=== PATIENT | female | born 1990 | race Caucasian/White ===

== ENCOUNTER 2016-08-12 23:33 | Emergency (ER) | payer MEDICAID ==
[2016-08-12 23:42] VITALS: TEMP 98.7
--- NOTE | 2016-08-13 01:38 | C.PDOC ---
History Of Present Illness 26 year old female presents to the ED with complaints of chest pain and back pain beginning just prior to arrival. Patient states she was playing with her child when they began to fall backward, causing her to strain her upper body, chest, and back preventing the child form falling. She denies any head trauma, LOC, shortness of breath, or palpitations. - HPI Time Seen by Provider: 08/12/16 23:46 Chief Complaint (Nursing): Trauma History Per: Patient History/Exam Limitations: no limitations Onset/Duration Of Symptoms: Hrs Injury Occurred (Timing): Just Before Arrival Location Of Injury: Right: Back, Left: Back, Anterior: Chest Pain Scale Rating Of: 6 Recent travel outside of the [place]: No Additional History Per: Family (significant other ) Past Medical History Reviewed: Historical Data, Nursing Documentation, Vital Signs Vital Signs: Last Vital Signs Temp 98.7 F 08/12/16 23:37 Pulse 80 08/13/16 01:44 Resp 14 08/13/16 01:44 BP 120/80 08/13/16 01:44 Pulse Ox 100 08/13/16 04:03 Family History: States: No Known Family Hx - Social History Hx Alcohol Use: Yes Hx Substance Use: No Review Of Systems Except As Marked, All Systems Reviewed And Found Negative. Constitutional: Negative for: Fever, Chills Cardiovascular: Positive for: Chest Pain. Negative for: Palpitations Respiratory: Negative for: Cough, Shortness of Breath Gastrointestinal: Negative for: Nausea, Vomiting, Abdominal Pain, Diarrhea Musculoskeletal: Positive for: Back Pain. Negative for: Arm Pain, Hand Pain, Leg Pain, Foot Pain Physical Exam - Physical Exam Appears: Non-toxic, No Acute Distress Skin: Warm, Dry, No Rash Head: Atraumatic, Normacephalic Eye(s): bilateral: Normal Inspection, PERRL, EOMI Ear(s): Bilateral: Normal Oral Mucosa: Moist Neck: Normal ROM, No Midline Cervical Tenderness, No Paracervical Tenderness, Supple Chest: Symmetrical, No Deformity, Tenderness (chest wall tenderness ), No Ecchymosis, No Subcutaneous Emphysema Cardiovascular: Rhythm Regular, No Friction Rub, No Murmur Respiratory: Normal Breath Sounds, No Rales, No Rhonchi, No Stridor, No Wheezing Gastrointestinal/Abdominal: Soft, No Tenderness, No Distention, No Guarding, No Rebound Back: No CVA Tenderness, No Vertebral Tenderness, No Paraspinal Tenderness Extremity: Normal ROM, No Tenderness, No Swelling Neurological/Psych: Oriented x3, Normal Speech, Normal Cranial Nerves, Normal Motor Gait: Steady ED Course And Treatment O2 Sat by Pulse Oximetry: 100 (room air) Pulse Ox Interpretation: Normal - Radiology CXR: Interpreted by Me, Viewed By Me CXR Interpretation: Yes: No Acute Disease. No: Infiltrates, Fracture, Pnemothorax Medical Decision Making Medical Decision Making: Patient was given Flexeril and Ibuprofen for inflammation and pain. On re-exam, the patient reports improvement of symptoms. Lungs are CTA, heart is RRR, abdomen is soft, non-tender and patient is tolerating PO well. Ambulatory in the ED with steady gait. Follow up with the medical doctor within 1-2 days. Return if worsened. Disposition - Disposition Referrals: Kam Burt MD [Staff Provider] - Disposition: HOME/ ROUTINE Disposition Time: 01:37 Condition: GOOD Additional Instructions: Follow up with the medical doctor within 1-2 days. Return if worsened Prescriptions: Cyclobenzaprine [Flexeril] 5 mg PO TID #21 tab Ibuprofen [Motrin] 600 mg PO TID #21 tab Instructions: Costochondritis (ED) - Clinical Impression Clinical Impression: Muscle strain, Costochondritis - Scribe Statement The provider has reviewed the documentation as recorded by the Scribangel Owens All medical record entries made by the Irisibangel were at my direction and personally dictated by me. I have reviewed the chart and agree that the record accurately reflects my personal performance of the history, physical exam, medical decision making, and the department course for this patient. I have also personally directed, reviewed, and agree with the discharge instructions and disposition.
[2016-08-13 01:45] VITALS: BP 120/80; PULSE 80; RESP 14
[2016-08-13 03:59] VITALS: O2SAT 100
--- NOTE | 2016-08-13 10:21 | RAD ---
HISTORY: chest injury COMPARISON: No prior. TECHNIQUE: Chest PA and lateral FINDINGS: LUNGS: The lungs are well inflated and clear. PLEURA: No significant pleural effusion identified. No pneumothorax apparent. CARDIOVASCULAR: Normal. OSSEOUS STRUCTURES: No significant abnormalities. VISUALIZED UPPER ABDOMEN: Normal. OTHER FINDINGS: None. IMPRESSION: No acute findings.
== END 2016-08-13 01:45 | disposition home or self-care (01) ==
LOC: C.ER 23:33
DX: M94.0 Chondrocostal junction syndrome [Tietze] (principal); S29.011A Strain of muscle and tendon of front wall of thorax, initial encounter; X50.9XXA Other and unspecified overexertion or strenuous movements or postures, initial encounter